=== PATIENT | male | born 1960 | race American Indian/Alaskan Native ===

== ENCOUNTER 2021-07-02 13:42 | Emergency (ER) | payer OTHER ==
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
--- NOTE | 2021-07-02 16:20 | XRay Report ---
RIGHT SHOULDER 3 VIEWS INDICATION: shoulder injury with pain. COMPARISON: None. IMPRESSION: No acute osseous or soft tissue abnormality. Minimal osteoarthritic changes are noted . Signer Name: Chin Szymanski Jr, MD Signed: 07/02/2021 4:16 PM Workstation Name: [id number]
[2021-07-02 16:49] VITALS: BP 139/86
== END 2021-07-02 16:48 ==
LOC: ED 13:42
DX: M19.011 Primary osteoarthritis, right shoulder (principal)
CPT/HCPCS: 99283